=== PATIENT | male | born 1975 | race Caucasian/White ===

== ENCOUNTER 2023-07-15 05:42 | Emergency (ER) | payer SELFPAY ==
[~2023-07-15] VITALS: Ht 175.3 cm; Wt 108.9 kg
[2023-07-15 05:42] VITALS: BP 135/82; PULSE 90; RESP 18; TEMP 97.7; O2SAT 99
[2023-07-15] MEDS ORDERED: IBUPROFEN 600 MG TAB PO ONE (06:20)
[2023-07-15] MEDS ORDERED: ACETAMINOPHEN EXTRA STRENGTH 500 MG TAB PO ONE (06:20)
[2023-07-15 09:11] LABS: BASOPHILS # (AUTO) 0.1 K/uL (0.00-0.22); BASOPHILS % (AUTO) 0.4 % (0.0-2.0); EOSINOPHILS % (AUTO) 0.3 % (0.0-4.0); HEMATOCRIT 44.5 % (36-52); HEMOGLOBIN 14.8 g/dL (12.0-18.0); LYMPHOCYTES # (AUTO) 1.4 K/uL (2.0-11.5); LYMPHOCYTES % (AUTO) 9.5 % (20.5-51.1); MEAN CORPUSCULAR HEMOGLOBIN 29 pg (27-31); MEAN CORPUSCULAR HGB CONC 33 g/dL (33-37); MEAN CORPUSCULAR VOLUME 86.7 fL (80-94); MONOCYTES # (AUTO) 0.9 K/uL (0.8-1.0); MONOCYTES % (AUTO) 6.2 % (1.7-9.3); NEUTROPHILS # (AUTO) 12.4 K/uL (1.8-7.7); NEUTROPHILS % (AUTO) 83.6 % (42.2-75.2); PLATELET COUNT (AUTO) 293 K/uL (140-450); RED BLOOD CELL COUNT(AUTO) 5.13 MIL/uL (4.20-6.10); RED CELL DISTRIBUTION WIDTH 13.3 % (11.6-13.7); WHITE BLOOD COUNT (AUTO) 14.8 K/uL (4.8-10.8)
[2023-07-15 09:24] VITALS: O2SAT 100
[2023-07-15 09:32] LABS: INR 0.97 (0.8-1.2); PARTIAL THROMBOPLASTIN TIME 25.5 secs (22-35.6); PROTHROMBIN TIME 10.2 secs (10.8-13.4)
[2023-07-15 09:35] LABS: ALBUMIN 4.2 g/dL (3.4-5.0); ANION GAP 16.4 (8-16); CARBON DIOXIDE 21.2 mmol/L (21-32); POTASSIUM 3.6 mmol/L (3.5-5.1); TOTAL BILIRUBIN 0.4 mg/dL (0.0-1.0); TOTAL PROTEIN, SERUM 7.9 g/dL (6.4-8.2)
[2023-07-15] MEDS ORDERED: ACET-8905 PO (09:44)
[2023-07-15] MEDS ORDERED: IBUP-2213 PO (09:44)
[2023-07-15 09:55] VITALS: BP 135/82; PULSE 90; RESP 18; TEMP 97.7; O2SAT 100
== END 2023-07-15 10:39 | disposition home or self-care (01) ==
LOC: MED 05:42
DX: S52.092A Other fracture of upper end of left ulna, initial encounter for closed fracture (principal); M79.662 Pain in left lower leg; D72.829 Elevated white blood cell count, unspecified; V49.88XA Car occupant (driver) (passenger) injured in other specified transport accidents, initial encounter; Y93.89 Activity, other specified; Y92.89 Other specified places as the place of occurrence of the external cause; Y99.8 Other external cause status
CPT/HCPCS: 29105; 36415; 73080; 73110; 73562; 73610; 80053; 85025; 85610; 85730; 99285; Q0092